=== PATIENT | female | born 1975 | race African-American/Black ===

== ENCOUNTER 2022-05-07 17:57 | Emergency (ER) | payer SELFPAY ==
[~2022-05-07] VITALS: Ht 167.6 cm; Wt 75.0 kg
[2022-05-07 18:05] VITALS: BP 132/78
== END 2022-05-07 19:09 | disposition home or self-care (01) ==
LOC: ER 17:57
DX: T40.711A Poisoning by cannabis, accidental (unintentional), initial encounter (principal); F12.929 Cannabis use, unspecified with intoxication, unspecified; R11.2 Nausea with vomiting, unspecified; Y92.018 Other place in single-family (private) house as the place of occurrence of the external cause
CPT/HCPCS: 99283